=== PATIENT | female | born 1960 | race Caucasian/White ===

== ENCOUNTER → 2020-05-18 | Outpatient (CLI) | payer OTHER | END | disposition home or self-care (01) | LOC: WOUNDCARE 00:31 | PROVIDERS: ATTEND Nurse Practitioner | DX: L89.313 Pressure ulcer of right buttock, stage 3 (principal); L89.210 Pressure ulcer of right hip, unstageable; G35 Multiple sclerosis; Z99.3 Dependence on wheelchair ==

== ENCOUNTER → 2020-05-25 | Outpatient (CLI) | payer OTHER | END | disposition home or self-care (01) | LOC: WOUNDCARE 00:35 | PROVIDERS: ATTEND Nurse Practitioner | DX: L89.313 Pressure ulcer of right buttock, stage 3 (principal); L89.210 Pressure ulcer of right hip, unstageable; G35 Multiple sclerosis; Z99.3 Dependence on wheelchair ==

== ENCOUNTER → 2020-06-15 | Outpatient (CLI) | payer OTHER | LOC: WOUNDCARE 01:05 | PROVIDERS: ATTEND Nurse Practitioner | DX: L89.313 Pressure ulcer of right buttock, stage 3 (principal); L89.210 Pressure ulcer of right hip, unstageable; G35 Multiple sclerosis; Z99.3 Dependence on wheelchair ==

== ENCOUNTER → 2020-06-30 | Outpatient (CLI) | payer OTHER | LOC: WOUNDCARE 00:36 | PROVIDERS: ATTEND Nurse Practitioner | DX: L89.313 Pressure ulcer of right buttock, stage 3 (principal); L89.210 Pressure ulcer of right hip, unstageable; S31.811A Laceration without foreign body of right buttock, initial encounter; S30.810A Abrasion of lower back and pelvis, initial encounter; G35 Multiple sclerosis; Z99.3 Dependence on wheelchair; X58.XXXA Exposure to other specified factors, initial encounter; Y93.89 Activity, other specified; Y92.89 Other specified places as the place of occurrence of the external cause; Y99.8 Other external cause status ==

== ENCOUNTER → 2020-07-06 | Outpatient (CLI) | payer OTHER | LOC: WOUNDCARE 00:29 | PROVIDERS: ATTEND Nurse Practitioner | DX: L89.313 Pressure ulcer of right buttock, stage 3 (principal); L89.210 Pressure ulcer of right hip, unstageable; S31.811D Laceration without foreign body of right buttock, subsequent encounter; S30.810D Abrasion of lower back and pelvis, subsequent encounter; G35 Multiple sclerosis; Z99.3 Dependence on wheelchair; X58.XXXD Exposure to other specified factors, subsequent encounter ==

== ENCOUNTER → 2020-07-27 | Outpatient (CLI) | payer OTHER | LOC: WOUNDCARE 00:45 | PROVIDERS: ATTEND Nurse Practitioner | DX: L89.313 Pressure ulcer of right buttock, stage 3 (principal); L89.210 Pressure ulcer of right hip, unstageable; S31.811D Laceration without foreign body of right buttock, subsequent encounter; G35 Multiple sclerosis; Z99.3 Dependence on wheelchair; X58.XXXD Exposure to other specified factors, subsequent encounter ==

== ENCOUNTER → 2020-08-03 | Outpatient (CLI) | payer OTHER | LOC: WOUNDCARE 00:30 | PROVIDERS: ATTEND Nurse Practitioner | DX: L89.313 Pressure ulcer of right buttock, stage 3 (principal); L89.210 Pressure ulcer of right hip, unstageable; G35 Multiple sclerosis; Z99.3 Dependence on wheelchair ==

== ENCOUNTER → 2020-08-10 | Outpatient (CLI) | payer OTHER | LOC: WOUNDCARE 08-07 15:22 | PROVIDERS: ATTEND Nurse Practitioner | DX: L89.313 Pressure ulcer of right buttock, stage 3 (principal); L89.210 Pressure ulcer of right hip, unstageable; L89.892 Pressure ulcer of other site, stage 2; G35 Multiple sclerosis; Z99.3 Dependence on wheelchair ==

== ENCOUNTER → 2020-08-17 | Outpatient (CLI) | payer OTHER | LOC: WOUNDCARE 01:05 | PROVIDERS: ATTEND Nurse Practitioner | DX: L89.313 Pressure ulcer of right buttock, stage 3 (principal); L89.210 Pressure ulcer of right hip, unstageable; L89.892 Pressure ulcer of other site, stage 2; G35 Multiple sclerosis; Z99.3 Dependence on wheelchair ==

== ENCOUNTER → 2020-08-24 | Outpatient (CLI) | payer OTHER | LOC: WOUNDCARE 00:25 | PROVIDERS: ATTEND Nurse Practitioner | DX: L89.313 Pressure ulcer of right buttock, stage 3 (principal); L89.210 Pressure ulcer of right hip, unstageable; L89.892 Pressure ulcer of other site, stage 2; G35 Multiple sclerosis; G50.0 Trigeminal neuralgia; Z99.3 Dependence on wheelchair ==

== ENCOUNTER → 2020-09-07 | Outpatient (CLI) | payer OTHER | LOC: WOUNDCARE 01:25 | PROVIDERS: ATTEND Nurse Practitioner | DX: L89.313 Pressure ulcer of right buttock, stage 3 (principal); L89.210 Pressure ulcer of right hip, unstageable; L89.892 Pressure ulcer of other site, stage 2; G35 Multiple sclerosis; G50.0 Trigeminal neuralgia; Z99.3 Dependence on wheelchair ==

== ENCOUNTER → 2020-09-21 | Outpatient (CLI) | payer OTHER | LOC: WOUNDCARE 07:01 | PROVIDERS: ATTEND Nurse Practitioner | DX: L89.313 Pressure ulcer of right buttock, stage 3 (principal); L89.210 Pressure ulcer of right hip, unstageable; L89.892 Pressure ulcer of other site, stage 2; G35 Multiple sclerosis; G50.0 Trigeminal neuralgia; Z99.3 Dependence on wheelchair ==

== ENCOUNTER → 2020-09-28 | Outpatient (CLI) | payer OTHER | LOC: WOUNDCARE 00:55 | PROVIDERS: ATTEND Nurse Practitioner | DX: L89.313 Pressure ulcer of right buttock, stage 3 (principal); L89.154 Pressure ulcer of sacral region, stage 4; L89.210 Pressure ulcer of right hip, unstageable; L89.892 Pressure ulcer of other site, stage 2; G35 Multiple sclerosis; G50.0 Trigeminal neuralgia; Z99.3 Dependence on wheelchair ==

== ENCOUNTER → 2020-10-06 | Outpatient (CLI) | payer OTHER | LOC: WOUNDCARE 00:55 | PROVIDERS: ATTEND Surgery | DX: L89.154 Pressure ulcer of sacral region, stage 4 (principal); L89.210 Pressure ulcer of right hip, unstageable; L89.892 Pressure ulcer of other site, stage 2; G35 Multiple sclerosis; G50.0 Trigeminal neuralgia; Z99.3 Dependence on wheelchair ==

== ENCOUNTER → 2020-10-12 | Outpatient (CLI) | payer OTHER | LOC: WOUNDCARE 02:00 | PROVIDERS: ATTEND Nurse Practitioner | DX: L89.154 Pressure ulcer of sacral region, stage 4 (principal); L89.210 Pressure ulcer of right hip, unstageable; L89.892 Pressure ulcer of other site, stage 2; G35 Multiple sclerosis; G50.0 Trigeminal neuralgia; Z99.3 Dependence on wheelchair ==

== ENCOUNTER → 2020-11-16 | Outpatient (CLI) | payer OTHER | LOC: WOUNDCARE 01:17 | PROVIDERS: ATTEND Nurse Practitioner | DX: L89.154 Pressure ulcer of sacral region, stage 4 (principal); L89.210 Pressure ulcer of right hip, unstageable; G35 Multiple sclerosis; L89.892 Pressure ulcer of other site, stage 2; G50.0 Trigeminal neuralgia; Z99.3 Dependence on wheelchair ==

== ENCOUNTER → 2020-11-23 | Outpatient (CLI) | payer OTHER | LOC: WOUNDCARE 01:17 | PROVIDERS: ATTEND Nurse Practitioner | DX: L89.154 Pressure ulcer of sacral region, stage 4 (principal); L89.210 Pressure ulcer of right hip, unstageable; L89.892 Pressure ulcer of other site, stage 2; G35 Multiple sclerosis; G50.0 Trigeminal neuralgia; Z99.3 Dependence on wheelchair ==

== ENCOUNTER → 2020-12-07 | Outpatient (CLI) | payer OTHER | LOC: WOUNDCARE 01:36 | PROVIDERS: ATTEND Nurse Practitioner | DX: L89.154 Pressure ulcer of sacral region, stage 4 (principal); L89.210 Pressure ulcer of right hip, unstageable; L89.892 Pressure ulcer of other site, stage 2; G35 Multiple sclerosis; G50.0 Trigeminal neuralgia; Z99.3 Dependence on wheelchair ==

== ENCOUNTER → 2020-12-14 | Outpatient (CLI) | payer OTHER | LOC: WOUNDCARE 00:44 | PROVIDERS: ATTEND Nurse Practitioner | DX: L89.154 Pressure ulcer of sacral region, stage 4 (principal); L89.210 Pressure ulcer of right hip, unstageable; L89.892 Pressure ulcer of other site, stage 2; G35 Multiple sclerosis; G50.0 Trigeminal neuralgia; Z99.3 Dependence on wheelchair ==

== ENCOUNTER → 2020-12-21 | Outpatient (CLI) | payer OTHER | LOC: WOUNDCARE 01:02 | PROVIDERS: ATTEND Nurse Practitioner | DX: L89.154 Pressure ulcer of sacral region, stage 4 (principal); L89.210 Pressure ulcer of right hip, unstageable; L89.892 Pressure ulcer of other site, stage 2; G35 Multiple sclerosis; G50.0 Trigeminal neuralgia; Z99.3 Dependence on wheelchair ==

== ENCOUNTER → 2020-12-28 | Outpatient (CLI) | payer OTHER ==
[2020-12-28 17:53] LABS: BILIRUBIN Negative (Negative); BLOOD 3+ (Negative); CLARITY Turbid (Clear); COLOR Yellow (Yellow); GLUCOSE Negative (Negative); KETONE Negative (Negative); LEUKO ESTERASE 3+ (Negative); NITRITE Positive (Negative); SPECIFIC GRAVITY 1.015 (1.001-1.030); UROBILINOGEN 0.2 E.U./dl (0.0-1.0)
[2020-12-28 18:04] LABS: BACTERIA 3+; CALCIUM OXALATE CRYSTALS 1+; RBC TNTC rbc/hpf (0-2); WBC TNTC wbc/hpf (0-5)
== END ==
LOC: WOUNDCARE 01:13
PROVIDERS: ATTEND Nurse Practitioner
DX: L89.154 Pressure ulcer of sacral region, stage 4 (principal); L89.210 Pressure ulcer of right hip, unstageable; L89.892 Pressure ulcer of other site, stage 2; N39.0 Urinary tract infection, site not specified; G35 Multiple sclerosis; G50.0 Trigeminal neuralgia; Z99.3 Dependence on wheelchair

== ENCOUNTER → 2021-01-04 | Outpatient (CLI) | payer OTHER | LOC: WOUNDCARE 01:50 | PROVIDERS: ATTEND Nurse Practitioner | DX: L89.154 Pressure ulcer of sacral region, stage 4 (principal); L89.210 Pressure ulcer of right hip, unstageable; L89.892 Pressure ulcer of other site, stage 2; N39.0 Urinary tract infection, site not specified; G35 Multiple sclerosis; G50.0 Trigeminal neuralgia; Z99.3 Dependence on wheelchair ==

== ENCOUNTER → 2021-01-18 | Outpatient (CLI) | payer OTHER | LOC: WOUNDCARE 00:25 | PROVIDERS: ATTEND Nurse Practitioner | DX: L89.154 Pressure ulcer of sacral region, stage 4 (principal); L89.210 Pressure ulcer of right hip, unstageable; L89.892 Pressure ulcer of other site, stage 2; N39.0 Urinary tract infection, site not specified; G35 Multiple sclerosis; G50.0 Trigeminal neuralgia; Z99.3 Dependence on wheelchair ==

== ENCOUNTER → 2021-01-25 | Outpatient (CLI) | payer OTHER | LOC: WOUNDCARE 00:42 | PROVIDERS: ATTEND Nurse Practitioner | DX: L89.154 Pressure ulcer of sacral region, stage 4 (principal); L89.210 Pressure ulcer of right hip, unstageable; L89.892 Pressure ulcer of other site, stage 2; N39.0 Urinary tract infection, site not specified; G35 Multiple sclerosis; G50.0 Trigeminal neuralgia; Z99.3 Dependence on wheelchair ==

== ENCOUNTER → 2021-02-01 | Outpatient (CLI) | payer OTHER | LOC: WOUNDCARE 01:26 | PROVIDERS: ATTEND Nurse Practitioner | DX: L89.154 Pressure ulcer of sacral region, stage 4 (principal); L89.210 Pressure ulcer of right hip, unstageable; L89.892 Pressure ulcer of other site, stage 2; N39.0 Urinary tract infection, site not specified; G35 Multiple sclerosis; G50.0 Trigeminal neuralgia; Z99.3 Dependence on wheelchair ==

== ENCOUNTER → 2021-02-08 | Outpatient (CLI) | payer OTHER | LOC: WOUNDCARE 00:51 | PROVIDERS: ATTEND Nurse Practitioner | DX: L89.154 Pressure ulcer of sacral region, stage 4 (principal); L89.892 Pressure ulcer of other site, stage 2; L89.210 Pressure ulcer of right hip, unstageable; N39.0 Urinary tract infection, site not specified; G35 Multiple sclerosis; G50.0 Trigeminal neuralgia; Z99.3 Dependence on wheelchair ==

== ENCOUNTER → 2021-02-15 | Outpatient (CLI) | payer OTHER | LOC: WOUNDCARE 00:54 | PROVIDERS: ATTEND Nurse Practitioner Primary Care | DX: L89.154 Pressure ulcer of sacral region, stage 4 (principal); L89.892 Pressure ulcer of other site, stage 2; L89.210 Pressure ulcer of right hip, unstageable; N39.0 Urinary tract infection, site not specified; G35 Multiple sclerosis; G50.0 Trigeminal neuralgia; Z99.3 Dependence on wheelchair ==

== ENCOUNTER → 2021-02-22 | Outpatient (CLI) | payer OTHER | LOC: WOUNDCARE 01:21 | PROVIDERS: ATTEND Nurse Practitioner Family | DX: L89.154 Pressure ulcer of sacral region, stage 4 (principal); G35 Multiple sclerosis; G50.0 Trigeminal neuralgia; Z99.3 Dependence on wheelchair ==

== ENCOUNTER → 2021-03-01 | Outpatient (CLI) | payer OTHER | LOC: WOUNDCARE 01:03 | PROVIDERS: ATTEND Nurse Practitioner Family | DX: L89.154 Pressure ulcer of sacral region, stage 4 (principal); L92.9 Granulomatous disorder of the skin and subcutaneous tissue, unspecified; G35 Multiple sclerosis; G50.0 Trigeminal neuralgia; Z99.3 Dependence on wheelchair ==

== ENCOUNTER → 2021-03-08 | Outpatient (CLI) | payer OTHER | LOC: WOUNDCARE 00:24 | PROVIDERS: ATTEND Nurse Practitioner Family | DX: L89.154 Pressure ulcer of sacral region, stage 4 (principal); L89.323 Pressure ulcer of left buttock, stage 3; G35 Multiple sclerosis; G50.0 Trigeminal neuralgia; Z99.3 Dependence on wheelchair ==

== ENCOUNTER → 2021-03-15 | Outpatient (CLI) | payer OTHER | LOC: WOUNDCARE 02:02 | PROVIDERS: ATTEND Nurse Practitioner Family | DX: L89.154 Pressure ulcer of sacral region, stage 4 (principal); G35 Multiple sclerosis; G50.0 Trigeminal neuralgia; Z99.3 Dependence on wheelchair ==

== ENCOUNTER → 2021-03-22 | Outpatient (CLI) | payer OTHER | LOC: WOUNDCARE 01:38 | PROVIDERS: ATTEND Nurse Practitioner Family | DX: L89.154 Pressure ulcer of sacral region, stage 4 (principal); G35 Multiple sclerosis; G50.0 Trigeminal neuralgia; Z99.3 Dependence on wheelchair ==

== ENCOUNTER → 2021-04-05 | Outpatient (CLI) | payer OTHER | LOC: WOUNDCARE 01:19 | PROVIDERS: ATTEND Nurse Practitioner Family | DX: L89.154 Pressure ulcer of sacral region, stage 4 (principal); L92.9 Granulomatous disorder of the skin and subcutaneous tissue, unspecified; G35 Multiple sclerosis; G50.0 Trigeminal neuralgia; Z99.3 Dependence on wheelchair ==

== ENCOUNTER → 2021-04-12 | Outpatient (CLI) | payer OTHER | LOC: WOUNDCARE 05:19 | PROVIDERS: ATTEND Nurse Practitioner Family | DX: L89.154 Pressure ulcer of sacral region, stage 4 (principal); G35 Multiple sclerosis; G50.0 Trigeminal neuralgia; L92.9 Granulomatous disorder of the skin and subcutaneous tissue, unspecified; Z99.3 Dependence on wheelchair ==

== ENCOUNTER → 2021-04-19 | Outpatient (CLI) | payer OTHER | LOC: WOUNDCARE 00:44 | PROVIDERS: ATTEND Nurse Practitioner Family | DX: L89.154 Pressure ulcer of sacral region, stage 4 (principal); G35 Multiple sclerosis; G50.0 Trigeminal neuralgia; L92.9 Granulomatous disorder of the skin and subcutaneous tissue, unspecified; Z99.3 Dependence on wheelchair ==

== ENCOUNTER → 2021-04-23 | Outpatient (CLI) | payer OTHER | END | disposition home or self-care (01) | LOC: RAD 00:44 | PROVIDERS: ATTEND Nurse Practitioner Family | DX: M47.898 Other spondylosis, sacral and sacrococcygeal region (principal); L89.154 Pressure ulcer of sacral region, stage 4; Z99.3 Dependence on wheelchair ==

== ENCOUNTER → 2021-04-26 | Outpatient (CLI) | payer OTHER | LOC: WOUNDCARE 01:08 | PROVIDERS: ATTEND Nurse Practitioner Family | DX: L89.154 Pressure ulcer of sacral region, stage 4 (principal); G35 Multiple sclerosis; G50.0 Trigeminal neuralgia; L92.9 Granulomatous disorder of the skin and subcutaneous tissue, unspecified; Z99.3 Dependence on wheelchair ==

== ENCOUNTER → 2021-05-10 | Outpatient (CLI) | payer OTHER | LOC: WOUNDCARE 02:43 | PROVIDERS: ATTEND Nurse Practitioner Family | DX: L89.154 Pressure ulcer of sacral region, stage 4 (principal); G35 Multiple sclerosis; G50.0 Trigeminal neuralgia; L92.9 Granulomatous disorder of the skin and subcutaneous tissue, unspecified; Z99.3 Dependence on wheelchair ==

== ENCOUNTER → 2021-05-17 | Outpatient (CLI) | payer OTHER | LOC: WOUNDCARE 02:16 | PROVIDERS: ATTEND Nurse Practitioner Family | DX: L89.154 Pressure ulcer of sacral region, stage 4 (principal); G35 Multiple sclerosis; Z99.3 Dependence on wheelchair ==

== ENCOUNTER → 2021-06-02 | Outpatient (CLI) | payer OTHER ==
[2021-06-02 15:41] LABS: BASO # 0.1 10*3/uL (0.0-0.1); BASO % 1.7 % (0.0-1.0); EOS # 0.3 10*3/uL (0.0-0.4); EOS % 5.3 % (1.0-4.0); HEMATOCRIT 42.6 % (37.0-47.0); LYMPH # 1.7 10*3/uL (1.3-4.4); LYMPH % 27.5 % (27.0-41.0); MEAN CELL VOLUME 86.2 fl (81.0-99.0); MEAN CORPUSCULAR HGB 27.1 pg (27.0-31.0); MEAN CORPUSCULAR HGB CONC 31.5 g/dl (33.0-37.0); MEAN PLATELET VOLUME 9.1 fl (9.6-12.3); MONO # 0.6 10*3/uL (0.1-1.0); MONO % 9.5 % (3.0-9.0); NEUT # 3.3 10*3/uL (2.3-7.9); NEUT % 55.5 % (47.0-73.0); PLATELET COUNT AUTOMATED 287 10*3/uL (130-400); RED BLOOD COUNT 4.94 10*6/uL (4.10-5.10); RED CELL DISTRI WIDTH 14.8 % (0-14.5)
[2021-06-02 16:11] LABS: ALBUMIN 3.2 gm/dl (3.1-4.5); ALKALINE PHOSPHATASE 107 U/L (45-117); BUN 29 mg/dl (7-24); CHLORIDE 108 mmol/L (98-107); CREATININE 0.56 mg/dL (0.55-1.02); PREALBUMIN 23 mg/dl (20-40); SGOT/AST 25 IU/L (3-35); SGPT/ALT 33 U/L (12-78); SODIUM 141 mmol/L (136-145); TOTAL PROTEIN 5.9 gm/dL (6.4-8.2)
== END | disposition home or self-care (01) ==
LOC: WOUNDCARE 05-31 02:30 → LAB 02:02 → WOUNDCARE 14:14
PROVIDERS: ATTEND Nurse Practitioner Family
DX: L89.154 Pressure ulcer of sacral region, stage 4 (principal); G35 Multiple sclerosis; E87.8 Other disorders of electrolyte and fluid balance, not elsewhere classified; Z99.3 Dependence on wheelchair; Z79.899 Other long term (current) drug therapy

== ENCOUNTER → 2021-06-07 | Outpatient (CLI) | payer OTHER | LOC: WOUNDCARE 01:06 | PROVIDERS: ATTEND Nurse Practitioner Family | DX: L89.154 Pressure ulcer of sacral region, stage 4 (principal); G35 Multiple sclerosis; G50.0 Trigeminal neuralgia; F06.4 Anxiety disorder due to known physiological condition; Z99.3 Dependence on wheelchair ==

== ENCOUNTER → 2021-06-21 | Outpatient (CLI) | payer OTHER | LOC: WOUNDCARE 01:40 | PROVIDERS: ATTEND Nurse Practitioner Family | DX: L89.154 Pressure ulcer of sacral region, stage 4 (principal); L92.9 Granulomatous disorder of the skin and subcutaneous tissue, unspecified; M25.531 Pain in right wrist; G35 Multiple sclerosis; G50.0 Trigeminal neuralgia; F06.4 Anxiety disorder due to known physiological condition; Z99.3 Dependence on wheelchair ==

== ENCOUNTER → 2021-06-30 | Outpatient (CLI) | payer OTHER | LOC: WOUNDCARE 00:45 | PROVIDERS: ATTEND Nurse Practitioner Family | DX: L89.154 Pressure ulcer of sacral region, stage 4 (principal); L92.9 Granulomatous disorder of the skin and subcutaneous tissue, unspecified; G35 Multiple sclerosis; G50.0 Trigeminal neuralgia; M25.531 Pain in right wrist; F06.4 Anxiety disorder due to known physiological condition; Z99.3 Dependence on wheelchair ==

== ENCOUNTER → 2021-07-05 | Outpatient (CLI) | payer OTHER | LOC: WOUNDCARE 12:49 | PROVIDERS: ATTEND Nurse Practitioner Family | DX: L89.154 Pressure ulcer of sacral region, stage 4 (principal); L92.9 Granulomatous disorder of the skin and subcutaneous tissue, unspecified; G35 Multiple sclerosis; G50.0 Trigeminal neuralgia; M25.531 Pain in right wrist; F06.4 Anxiety disorder due to known physiological condition; Z99.3 Dependence on wheelchair ==

== ENCOUNTER → 2021-07-19 | Outpatient (CLI) | payer OTHER | LOC: WOUNDCARE 00:53 | PROVIDERS: ATTEND Nurse Practitioner Family | DX: L89.154 Pressure ulcer of sacral region, stage 4 (principal); L89.319 Pressure ulcer of right buttock, unspecified stage; G35 Multiple sclerosis; M25.531 Pain in right wrist; G50.0 Trigeminal neuralgia; F06.4 Anxiety disorder due to known physiological condition; Z99.3 Dependence on wheelchair ==

== ENCOUNTER → 2021-08-02 | Outpatient (CLI) | payer OTHER | LOC: WOUNDCARE 00:50 | PROVIDERS: ATTEND Nurse Practitioner Family | DX: L89.154 Pressure ulcer of sacral region, stage 4 (principal); L89.312 Pressure ulcer of right buttock, stage 2; G35 Multiple sclerosis; M25.531 Pain in right wrist; F06.4 Anxiety disorder due to known physiological condition; Z99.3 Dependence on wheelchair ==

== ENCOUNTER → 2021-08-09 | Outpatient (CLI) | payer OTHER | END | disposition home or self-care (01) | LOC: WOUNDCARE 01:01 | PROVIDERS: ATTEND Nurse Practitioner Family | DX: L89.154 Pressure ulcer of sacral region, stage 4 (principal); G35 Multiple sclerosis; M25.531 Pain in right wrist; F06.4 Anxiety disorder due to known physiological condition; Z99.3 Dependence on wheelchair ==

== ENCOUNTER → 2021-08-16 | Outpatient (CLI) | payer OTHER | END | disposition home or self-care (01) | LOC: WOUNDCARE 00:44 | PROVIDERS: ATTEND Nurse Practitioner Family | DX: L89.154 Pressure ulcer of sacral region, stage 4 (principal); L89.322 Pressure ulcer of left buttock, stage 2; L89.312 Pressure ulcer of right buttock, stage 2; G35 Multiple sclerosis; M25.531 Pain in right wrist; F06.4 Anxiety disorder due to known physiological condition; Z99.3 Dependence on wheelchair ==

== ENCOUNTER → 2021-08-23 | Outpatient (CLI) | payer OTHER | END | disposition home or self-care (01) | LOC: WOUNDCARE 01:34 | PROVIDERS: ATTEND Nurse Practitioner Family | DX: L89.154 Pressure ulcer of sacral region, stage 4 (principal); L89.322 Pressure ulcer of left buttock, stage 2; L89.312 Pressure ulcer of right buttock, stage 2; G35 Multiple sclerosis; M25.531 Pain in right wrist; F06.4 Anxiety disorder due to known physiological condition; Z99.3 Dependence on wheelchair ==

== ENCOUNTER → 2021-09-06 | Outpatient (CLI) | payer OTHER | END | disposition home or self-care (01) | LOC: WOUNDCARE 02:52 | PROVIDERS: ATTEND Nurse Practitioner Family | DX: L89.154 Pressure ulcer of sacral region, stage 4 (principal); G35 Multiple sclerosis; M25.531 Pain in right wrist; F06.4 Anxiety disorder due to known physiological condition; Z99.3 Dependence on wheelchair ==

== ENCOUNTER → 2021-10-07 | Outpatient (CLI) | payer OTHER | END | disposition home or self-care (01) | LOC: WOUNDCARE 03:15 | PROVIDERS: ATTEND Nurse Practitioner Family | DX: L89.154 Pressure ulcer of sacral region, stage 4 (principal); G35 Multiple sclerosis; M25.531 Pain in right wrist; F06.4 Anxiety disorder due to known physiological condition; Z99.3 Dependence on wheelchair ==

== ENCOUNTER → 2021-10-14 | Outpatient (CLI) | payer OTHER | LOC: WOUNDCARE 01:50 | PROVIDERS: ATTEND Nurse Practitioner Family | DX: Z53.21 Procedure and treatment not carried out due to patient leaving prior to being seen by health care provider (principal) ==

== ENCOUNTER → 2021-10-28 | Outpatient (CLI) | payer OTHER | LOC: WOUNDCARE 02:58 | PROVIDERS: ATTEND Nurse Practitioner Family | DX: L89.154 Pressure ulcer of sacral region, stage 4 (principal); G35 Multiple sclerosis; M25.531 Pain in right wrist; F06.4 Anxiety disorder due to known physiological condition; Z99.3 Dependence on wheelchair ==

== ENCOUNTER → 2021-11-05 | Outpatient (CLI) | payer OTHER | END | disposition home or self-care (01) | LOC: WOUNDCARE 03:40 | PROVIDERS: ATTEND Nurse Practitioner Family | DX: L89.154 Pressure ulcer of sacral region, stage 4 (principal); G35 Multiple sclerosis; M25.531 Pain in right wrist; F06.4 Anxiety disorder due to known physiological condition; Z99.3 Dependence on wheelchair ==